=== PATIENT | male | born 1930 | race Caucasian/White ===

== ENCOUNTER → 2019-07-25 | Day surgery (SDC) | payer MEDICARE, OTHER ==
[2019-07-18 11:44] LABS: BASOPHILS # (AUTO) 0.1 (0.0-0.1); BASOPHILS % 0.4 % (0.0-1.0); EOSINOPHILS # (AUTO) 0.1 (0.0-0.4); EOSINOPHILS % 0.9 % (0.0-6.0); HEMATOCRIT 41.1 % (38.2-49.6); HEMOGLOBIN 13.4 g/dL (14.0-18.0); LYMPHOCYTES # (AUTO) 5.4 (1.0-3.2); LYMPHOCYTES % 40.3 % (18.0-39.1); MEAN CORPUSCULAR HEMOGLOBIN 26.7 pg (28-32); MEAN CORPUSCULAR HGB CONC 32.6 g/dL (31-35); MEAN CORPUSCULAR VOLUME 81.9 fL (81-99); MONOCYTES # (AUTO) 0.9 (0.2-0.8); MONOCYTES % 6.9 % (4.4-11.3); NEUTROPHILS # (AUTO) 6.8 (2.1-6.9); NEUTROPHILS % 51.1 % (38.7-80.0); PLATELET COUNT 235 x10e3/uL (140-360); RED BLOOD COUNT 5.02 x10e6/uL (4.3-5.7); RED CELL DISTRIBUTION WIDTH 13.4 % (11.7-14.4)
--- NOTE | 2019-07-18 12:41 | Diagnostic Imaging Report ---
Chest, PA and lateral. History: Preoperative evaluation, nephrolithiasis. Comparison: None available. Discussion: The heart is within normal limits of size. Patient status post median sternotomy. There is no focal consolidation. Small left pleural effusion is present. There is no pneumothorax. IMPRESSION: Small left pleural effusion Signed by: Shravan Gleason MD on 07/18/2019 12:38 PM
[~2019-07-25] MED LIST: AMLODIPINE BESY10 MG PO; ASPIR 8181 MG PO; B&O 60MG R/S 60 MG SUPP PR ONE; CEFTRIAXONE SOD 1 GM/NS 50 ML 50 ML IV ONE; DEXAMETHASONE SOD PHOS INJ 4 MG/ML VIAL ONE; FLOMAX0.4 MG PO; IOPAMIDOL 300MG/ML 50ML INFUS..BTL IV ONE; LIDOCAINE HCL 2% LOCAL INJ 5 ML SDV VIAL INJ ONE; ONDANSETRON HCL INJ 2MG/ML 2ML 2 MG/ML VIAL ONE; PRAVASTATIN SOD20 MG PO; PROPOFOL IV EMULSION 10 MG/ML 20 ML VIAL ONE; SEVOFLURANE INHAL SOLN 250 ML PEN BTL ONE; TYLENOL WITH C1 EACH PO
--- OUTSIDE RECORDS SUMMARY | 2019-07-25 14:10 | XMS REPORT | Summary of Care ---
Author Author MERCY LEE M.D. Unknown Address Unknown Phone Unavailable Care Team Providers Care [employer] Worker Name Role Phone MERCY LEE M.D. 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.18, H90.3) Status: Active Medications Name Dates Details No Reported Medications Active Allergies and Adverse Reactions Name Dates Details No Known Allergies (Allergy) Status: Active Procedures Procedure Dates Details Procedures not documented Immunization Name Dates Details Immunizations not documented Family History Name Dates Details No pertinent family history (V49.89, Z78.9) Comments: Other Status: Active Social History Name Dates Details - Status: Name Dates Details Never smoker Vital Signs Date Test Result Details [id number] Height 73 in Status: Weight 212.0625 lb Status: Body Mass Index Calculated 27.98 kg/m2 Status: Body Surface Area Calculated 2.21 m2 Status: Results Date Description Value Details Results not documented Plan of Care Name Dates Details Planned Observations Planned Goals not documented Interventions Provided Plan* 88 yo M with bilateral sensorineural hearing loss, cerumen impactions * - debrided bilateral EACs with instrumentation * - audio reviewed; medically cleared for hearing aids * - RTC 1 year with audio Instructions Name Dates Details Instructions not documented Encounters Appointment; MERCY LEE M.D. Encounter Diagnosis: Problem not documented On: 24-Oct-2018 10:30
--- OUTSIDE RECORDS SUMMARY | 2019-07-25 14:10 | XMS REPORT ---
[facility] Address Unknown Phone Unavailable Care Team Providers Care Avionics Safety Inspector Name Role Phone JOAQUÍN CORTÉS Unavailable Unavailable Payers Payer Name Policy Type Policy Number Effective Date Expiration Date Problems This patient has no known problems. Allergies, Adverse Reactions, Alerts Allergy Name Allergy Type Status Severity Reaction(s) Onset Date Inactive Date Treating Clinician Comments No Known Allergies DA Active U 2015-01-28 00:00:00 Medications This patient has no known medications. Results Test Description Test Time Test Comments Text Results Atomic Results Result Comments CHEST 2 VIEWS 2019-07-18 12:37:00 [place] [address] Patient Name: SAY SPEARS MR #: [id number] : 1930 Age/Sex: 89/M Req #: [id number] Adm Physician: Ordered by: JOAQUÍN CORTÉS MD Report #: [id number] Location: OR Room/Bed: Procedure: [id number] DX/CHEST 2 VIEWS Exam Date: 07/18/19 Exam Time: 1155 REPORT STATUS: Signed Chest, PA and lateral. History: Preoperative evaluation, nephrolithiasis. Comparison: None available. Discussion: The heart is within normal limits of size. Patient status post median sternotomy. There is no focal consolidation. Small left pleural effusion is present. There is no pneumothorax. IMPRESSION: Small left pleural effusion Signed by: Shravan Salazar MD on 07/18/2019 12:38 PM Dictated By: SHRAVAN SALAZAR MD 1238 Transcribed By: ASHLYN on 07/18/19 1238 COPY TO: JOAQUÍN CORTÉS MD - XR ABDOMEN AP 1 V 2019-06-09 16:18:00 FAX: Sumit Diaz [phone] [place]: St: ADM Name: SAY SPEARS [facility] : 1930 Age/S: 89/M [address] [facility] Unit #: [id number] Loc: V.50[address] [place] [address] Phys: Sumit Diaz MD Acct: [id number] Dis Date: Status: ADM IN PHONE #: [phone] Exam Date: 06/09/2019 1556 FAX #: [phone] Reason: STONE EXAMS: CPT CODE: [id number] XR ABDOMEN AP 1 V 71617 REASON FOR EXAM: STONE EXAM ORDER DATE: 06/09/2019 12:00 AM Attending Huma: Sumit Way MD PROCEDURE: - XR ABDOMEN AP 1 V COMPARISON:06/07/2019 FINDINGS: One view of the abdomen obtained at 3:36 PM. Large amount of stool seen throughout the colon suggestive of constipation. The small bowel is unremarkable. No evidence of organomegaly or evidence of ascites. No evidence of free air. IMPRESSION: Interval placement of a double-J left ureteral stent. No evidence of radiopaque stone at 1618 Reported and signed by: Gene Cherry M.D. CC: Sumit Diaz Technologist: FERNANDO WEBB, RT(R); GIOVANNY ODONNELL Trnscrd Date/Time/By: 06/09/2019 (6659) : By: JaysonL Orig Print D/T: S: 06/09/2019 (3813) PAGE 1 Signed Report BASIC METABOLIC PANEL 2019-06-09 08:03:00 SODIUM (test code=NA) 141 mmol/L 136-145 POTASSIUM (test code=K) 3.6 mmol/L 3.5-5.1 CHLORIDE (test code=CL) 110.0 mmol/L 98-107 CARBON DIOXIDE (test code=CO2) 23.0 mmol/L 21-32 ANION GAP (test code=GAP) 11.6 10-20 GLUCOSE (test code=GLU) 102 mg/dL 74-106 BLOOD UREA NITROGEN (test code=BUN) 24 mg/dL 7-18 GLOMERULAR FILTRATION RATE (test code=GFR) 44 mL/min >=60 Estimated GFR by using Modified MDRD formula.Chronic kidney disease is defined as either kidney damageor GFR <60 mL/min/1.73 m2 for >3 months. CREATININE (test code=CREAT) 1.50 mg/dL 0.7-1.3 BUN/CREATININE RATIO (test code=BUN/CREA) 16.0 10-20 CALCIUM (test code=CA) 9.0 mg/dL 8.5-10.1 BASIC METABOLIC [id number] 08:01:00* Test Item Value Reference Range Comments SODIUM (test code=NA) 141 mmol/L 136-145 POTASSIUM (test code=K) 3.6 mmol/L 3.5-5.1 CHLORIDE (test code=CL) 110.0 mmol/L 98-107 CARBON DIOXIDE (test code=CO2) mmol/L 21-32 ANION GAP (test code=GAP) 10-20 GLUCOSE (test code=GLU) mg/dL 74-106 BLOOD UREA NITROGEN (test code=BUN) mg/dL 7-18 GLOMERULAR FILTRATION RATE (test code=GFR) mL/min >=60 CREATININE (test code=CREAT) mg/dL 0.7-1.3 BUN/CREATININE RATIO (test code=BUN/CREA) 10-20 CALCIUM (test code=CA) mg/dL 8.5-10.1 CBC W/AUTO [id number] 07:42:00* Test Item Value Reference Range Comments WHITE BLOOD CELL (test code=WBC) K/mm3 4.5-12.5 RED BLOOD CELL (test code=RBC) mill/mm3 4.0-5.8 HEMOGLOBIN (test code=HGB) 13.0 gram/dL 13.0-17.5 HEMATOCRIT (test code=HCT) % 42.0-52.0 MEAN CELL VOLUME (test code=MCV) fL 80-98 MEAN CELL HGB (test code=MCH) picogram 27.0-33.0 MEAN CELL HGB CONCETRATION (test code=MCHC) gram/dL 33.0-36.0 RED CELL DISTRIBUTION WIDTH (test code=RDW) % 11.6-16.2 RED CELL DISTRIBUTION WIDTH SD (test code=RDW-SD) fL 37.0-51.0 PLATELET COUNT (test code=PLT) K/mm3 150-450 MEAN PLATELET VOLUME (test code=MPV) fL 6.7-11.0 NEUTROPHIL % (test code=NT%) % 39.0-69.0 IMMATURE GRANULOCYTE % (test code=IG%) % 0.0-5.0 LYMPHOCYTE % (test code=LY%) % 25.0-55.0 MONOCYTE % (test code=MO%) % 0.0-10.0 EOSINOPHIL % (test code=EO%) % 0.0-5.0 BASOPHIL % (test code=BA%) % 0.0-1.0 NEUTROPHIL # (test code=NT#) K/mm3 1.8-7.7 LYMPHOCYTE # (test code=LY#) K/mm3 1.0-5.0 MONOCYTE # (test code=MO#) K/mm3 0-0.8 EOSINOPHIL # (test code=EO#) K/mm3 0.0-0.5 BASOPHIL # (test code=BA#) K/mm3 0.0-0.2 CBC W/AUTO [id number] 07:42:00* Test Item Value Reference Range Comments WHITE BLOOD CELL (test code=WBC) 11.4 K/mm3 4.5-12.5 RED BLOOD CELL (test code=RBC) 4.81 mill/mm3 4.0-5.8 HEMOGLOBIN (test code=HGB) 13.0 gram/dL 13.0-17.5 HEMATOCRIT (test code=HCT) 39.6 % 42.0-52.0 MEAN CELL VOLUME (test code=MCV) 82.3 fL 80-98 MEAN CELL HGB (test code=MCH) 27.0 picogram 27.0-33.0 MEAN CELL HGB CONCETRATION (test code=MCHC) 32.8 gram/dL 33.0-36.0 RED CELL DISTRIBUTION WIDTH (test code=RDW) 13.9 % 11.6-16.2 RED CELL DISTRIBUTION WIDTH SD (test code=RDW-SD) 41.2 fL 37.0-51.0 PLATELET COUNT (test code=PLT) 194 K/mm3 150-450 MEAN PLATELET VOLUME (test code=MPV) 10.2 fL 6.7-11.0 NEUTROPHIL % (test code=NT%) 58.8 % 39.0-69.0 IMMATURE GRANULOCYTE % (test code=IG%) 0.3 % 0.0-5.0 LYMPHOCYTE % (test code=LY%) 30.6 % 25.0-55.0 MONOCYTE % (test code=MO%) 9.6 % 0.0-10.0 EOSINOPHIL % (test code=EO%) 0.4 % 0.0-5.0 BASOPHIL % (test code=BA%) 0.3 % 0.0-1.0 NUCLEATED RBC % (test code=NRBC%) 0.0 % 0-0 NEUTROPHIL # (test code=NT#) 6.72 K/mm3 1.8-7.7 IMMATURE GRANULOCYTE # (test code=IG#) 0.03 x10 3/uL 0-0.03 LYMPHOCYTE # (test code=LY#) 3.49 K/mm3 1.0-5.0 MONOCYTE # (test code=MO#) 1.09 K/mm3 0-0.8 EOSINOPHIL # (test code=EO#) 0.04 K/mm3 0.0-0.5 BASOPHIL # (test code=BA#) 0.03 K/mm3 0.0-0.2 NUCLEATED RBC # (test code=NRBC#) 0.00 K/mm3 0.0-0.1 [id number] 08:50:00* Test Item Value Reference Range Comments GLUBED (test code=GLUBED) 108 mg/dL 74-106 Performed by certified dividing machine operator at [facility] - XR ABDOMEN AP 1 [id number] 11:47:00 FAX: Joaquín Brown MD [phone] [place]: St: ADM FAX: Sumit Diaz [phone] Name: SAY SPEARS [facility] : 1930 Age/S: 89/M [address] [facility] Unit #: [id number] Loc: .[address] [place] [address] Phys: Joaquín Cortés MD Acct: [id number] Dis Date: Status: ADM IN PHONE #: [phone] Exam Date: 06/07/2019 1040 FAX #: [phone] Reason: LEFT OBSTRUCTING URETERAL STONE EXAMS: CPT CODE: [id number] XR ABDOMEN AP 1 V [id number] EXAM: Abdomen, 2 views; INFORMATION: Left ureteral stone; IMPRESSION: 1. The left ureteral stone, demonstr ated on yesterday's CT scan appears to be superimposed over the lateral aspect of the transverse process of L5. 2. The small nonobstruct ing calyceal stone in the left kidney is not clearly identified on this study. 3. Unremarkable bowel gas pattern; no evidence of obstruction or other acute abnormalities. Location [facility] at 1141 Reported and signed b y: Buzz Denise M.D. CC: Joaquín Cortés MD; Sumit Diaz Technologist: QUENTIN ALVAREZ(R) Trnscrd Date/Time/By: 06/07/2019 (1147) : By: Adin Orig Print D/T: S: 06/07/2019 (2045) PAGE 1 Signed Report CBC W/AUTO [id number] 07:17:00* Test Item Value Reference Range Comments WHITE BLOOD CELL (test code=WBC) 11.6 K/mm3 4.5-12.5 RED BLOOD CELL (test code=RBC) 4.64 mill/mm3 4.0-5.8 HEMOGLOBIN (test code=HGB) 12.4 gram/dL 13.0-17.5 HEMATOCRIT (test code=HCT) 40.0 % 42.0-52.0 MEAN CELL VOLUME (test code=MCV) 86.2 fL 80-98 MEAN CELL HGB (test code=MCH) 26.7 picogram 27.0-33.0 MEAN CELL HGB CONCETRATION (test code=MCHC) 31.0 gram/dL 33.0-36.0 RED CELL DISTRIBUTION WIDTH (test code=RDW) 14.1 % 11.6-16.2 RED CELL DISTRIBUTION WIDTH SD (test code=RDW-SD) 44.3 fL 37.0-51.0 PLATELET COUNT (test code=PLT) 161 K/mm3 150-450 RESULT VERIFIED BY REPEAT ANALYSIS MEAN PLATELET VOLUME (test code=MPV) 9.6 fL 6.7-11.0 NEUTROPHIL % (test code=NT%) 43.7 % 39.0-69.0 IMMATURE GRANULOCYTE % (test code=IG%) 0.3 % 0.0-5.0 LYMPHOCYTE % (test code=LY%) 44.4 % 25.0-55.0 MONOCYTE % (test code=MO%) 8.3 % 0.0-10.0 EOSINOPHIL % (test code=EO%) 2.8 % 0.0-5.0 BASOPHIL % (test code=BA%) 0.5 % 0.0-1.0 NUCLEATED RBC % (test code=NRBC%) 0.0 % 0-0 NEUTROPHIL # (test code=NT#) 5.09 K/mm3 1.8-7.7 IMMATURE GRANULOCYTE # (test code=IG#) 0.03 x10 3/uL 0-0.03 LYMPHOCYTE # (test code=LY#) 5.15 K/mm3 1.0-5.0 MONOCYTE # (test code=MO#) 0.96 K/mm3 0-0.8 EOSINOPHIL # (test code=EO#) 0.32 K/mm3 0.0-0.5 BASOPHIL # (test code=BA#) 0.06 K/mm3 0.0-0.2 NUCLEATED RBC # (test code=NRBC#) 0.00 K/mm3 0.0-0.1 BASIC METABOLIC [id number] 07:01:00* Test Item Value Reference Range Comments SODIUM (test code=NA) 142 mmol/L 136-145 POTASSIUM (test code=K) 3.5 mmol/L 3.5-5.1 CHLORIDE (test code=CL) 108.0 mmol/L 98-107 CARBON DIOXIDE (test code=CO2) 26.0 mmol/L 21-32 ANION GAP (test code=GAP) 11.5 10-20 GLUCOSE (test code=GLU) 103 mg/dL 74-106 BLOOD UREA NITROGEN (test code=BUN) 16 mg/dL 7-18 GLOMERULAR FILTRATION RATE (test code=GFR) 44 mL/min >=60 Estimated GFR by using Modified MDRD formula.Chronic kidney disease is defined as either kidney damageor GFR <60 mL/min/1.73 m2 for >3 months. CREATININE (test code=CREAT) 1.50 mg/dL 0.7-1.3 BUN/CREATININE RATIO (test code=BUN/CREA) 11.0 10-20 CALCIUM (test code=CA) 8.8 mg/dL 8.5-10.1 BASIC METABOLIC [id number] 06:59:00* Test Item Value Reference Range Comments SODIUM (test code=NA) 142 mmol/L 136-145 POTASSIUM (test code=K) 3.5 mmol/L 3.5-5.1 CHLORIDE (test code=CL) 108.0 mmol/L 98-107 CARBON DIOXIDE (test code=CO2) mmol/L 21-32 ANION GAP (test code=GAP) 10-20 GLUCOSE (test code=GLU) mg/dL 74-106 BLOOD UREA NITROGEN (test code=BUN) mg/dL 7-18 GLOMERULAR FILTRATION RATE (test code=GFR) mL/min >=60 CREATININE (test code=CREAT) mg/dL 0.7-1.3 BUN/CREATININE RATIO (test code=BUN/CREA) 10-20 CALCIUM (test code=CA) mg/dL 8.5-10.1 - CT ABD PELVIS W WO [id number] 10:16:00 Name: SAY SPEARS [facility] : 1930 Age/S: 89 / M [address] [facility] Unit #: [id number] Loc: [place] [address] Phys: Tianna Bhardwaj MD Acct: [id number] Dis Date: Status: REG ER PHONE #: [phone] Exam Date: 06/06/2019 0942 FAX #: [phone] Reason: L flank pain radiation to LLQ, h/o CA/renal sto EXAMS: CPT CODE: [id number] CT ABD PELVIS W WO CONT 93853 REASON FOR EXAM: L flank pain radiation to LLQ, h/o CA/renal stones EXAM ORDER DATE: 06/06/2019 8:35 AM Ordering M.D.: Tianna Bhardwaj MD PROCEDURE: - CT ABD PELVIS W WO CONT pre and postcontrast axial CT images were acquired through the abdomen/pelvis at 5 mm intervals. Sagittal and coronal reformatted images were generated. Automated exposure control was utilized for this reduction. Phases of contrast: venous and delayed COMPARISON: CT of the abdomen and pelvis August 01, 2018 FINDINGS: Visualized thorax: There is a noncalcified nodule in the right lower lobe (6/3) which was not included on the prior exam. This nodule measures up to 5 mm in size. There is a persistent left-sided pleural effusion. There is also rounded atelectasis in the left lung base. Cardiac chambers are normal in size. Three-vessel coronary ather osclerosis is present. There are right-sided pleural calcifications. Calci fied granulomas are present in the right lower lobe. Hepatob iliary system: There is a stone within the gallbladder lumen. No perichole cystic fat stranding or fluid to suggest acute cholecystitis Pancreas: Atrophic with mild fatty replacement Spleen: Normal Adrenal glands: Normal Genitourinary system: There are punctate stones in the left kidney. There is also a 4 mm stone in the mid left ureter (2/70). There is mild left-sided hydronephrosis as well as del ayed enhancement suggesting obstruction. The prostate gland is enlarged wi th calcification centrally. Urinary bladder is within normal limits. Bilateral simple renal cysts are unchanged from the previous exam. Gastrointestinal tract and appendix: Small hiatal hernia is present. Director Process ious amount of stool is seen in the colon. Postsurgical changes PAGE 1 Signed Report (CONTINUED) Name: SAY SPEARS [facility] : 1930 Age/ S: 89 / M [address] [facility] Unit #: [id number] Loc: [place] [address] Phys: Tianna Bhardwaj MD Acct: [id number] Dis Date: Status: REG ER PHONE #: [phone] Exam Date: 06/06/2019941 FAX #: [phone] Reason: L flank pain radiation to LLQ, h/o CA/renal sto EXAMS: CPT CODE: [id number] CT ABD PELVIS W WO CONT [id number] <Continued> with anastomotic sutures are present in the midline of the mid to lower abdomen. There is diverticular disease in the sigmoid and descending colon but no evidence of diverticulitis. Abdominal vascular structures: There is atherosclerotic disease in the aorta, iliac arteries, and femoral arteries. Peritoneum and retroperitoneum: No free fluid or free air. No omental or mesenteric masses. No abnormal lymph nodes. Musculoskeletal structures and abdominal wall: Degenerative changes are seen throughout the visualized spine. IMPRESSION: Obstructing 4 mm stone in the left ureter with associated hydroureter onephrosis.. Postsurgical changes of bowel resection with anastomosis in the mid abdomen. No abnormal masses at the anastomotic site. Co lonic diverticulosis without evidence of diverticulitis. Left-sided nonc alcified pulmonary nodule. Given the reported history of cancer, compari son with prior imaging of the chest is recommended to assess for stabili ty. Chronic left-sided pleural effusion with rounded atelectasis of the underlying lung. Right-sided pleural calcifications. These findi ngs may be sequela of prior infectious process or prior hemothorax. Location: [facility] at 1016 Reported and signed by: Isidro jerez MD CC: Tianna Bhardwaj MD Techno logist:Yeni Jaime RT(R)(CT) CTDI: 9.05 DLP: 1459.12Trnscb Date/Time : 06/06/2019 (1016) [email or web address] Orig Print D/T: S: 06/06/20 19 (2161) PAGE 2 Signed Report CBC W/MANUAL [id number] 09:49:00* Test Item Value Reference Range Comments WHITE BLOOD CELL (test code=WBC) 14.1 K/mm3 4.5-12.5 RED BLOOD CELL (test code=RBC) 5.32 mill/mm3 4.0-5.8 HEMOGLOBIN (test code=HGB) 14.2 gram/dL 13.0-17.5 HEMATOCRIT (test code=HCT) 43.8 % 42.0-52.0 MEAN CELL VOLUME (test code=MCV) 82.3 fL 80-98 MEAN CELL HGB (test code=MCH) 26.7 picogram 27.0-33.0 MEAN CELL HGB CONCETRATION (test code=MCHC) 32.4 gram/dL 33.0-36.0 RED CELL DISTRIBUTION WIDTH (test code=RDW) 13.7 % 11.6-16.2 RED CELL DISTRIBUTION WIDTH SD (test code=RDW-SD) 42.0 fL 37.0-51.0 PLATELET COUNT (test code=PLT) 223 K/mm3 150-450 MEAN PLATELET VOLUME (test code=MPV) 9.5 fL 6.7-11.0 NEUTROPHIL # (test code=NT#) 7.22 K/mm3 1.8-7.7 LYMPHOCYTE # (test code=LY#) 5.86 K/mm3 1.0-5.0 MONOCYTE # (test code=MO#) 0.88 K/mm3 0-0.8 EOSINOPHIL # (test code=EO#) 0.09 K/mm3 0.0-0.5 BASOPHIL # (test code=BA#) 0.04 K/mm3 0.0-0.2 MANUAL DIFF REQUIRED (test code=MDIFF) YES STAIN ACCEPTABILITY (test code=STN ACCEPTABLE) STAIN ACCEPTABLE TOTAL CELLS COUNTED (test code=TCC) 100 #CELLS SEGMENTED NEUTROPHILS (test code=SEG) 57 % 39-69 LYMPHOCYTE (test code=LYMPH) 38 % 25-55 MONOCYTE (test code=MON) 5 % 0-10 MORPHOLOGY COMMENT (test code=MOC) NORMAL PLATELET ESTIMATE (test code=PLTEST) ADEQUATE PLATELET MORPHOLOGY (test code=PLTMORPH) NORMAL URINALYSIS [id number] 09:24:00* Test Item Value Reference Range Comments UA COLOR (test code=COLU) DARK YELLOW YELLOW UA APPEARANCE (test code=APPU) HAZY CLEAR UA GLUCOSE DIPSTICK (test code=DGLUU) norm mg/dL NEGATIVE UA BILIRUBIN DIPSTICK (test code=BILU) NEGATIVE mg/dL NEGATIVE UA KETONE DIPSTICK (test code=KETU) 15 (1+) mg/dL NEGATIVE UA SPECIFIC GRAVITY (test code=SGU) 1.015 1.001-1.035 UA BLOOD DIPSTICK (test code=SHAKEEL) 50 (2+) Kobi/uL NEGATIVE UA PH DIPSTICK (test code=ANNE-MARIE) 6.0 5.0-8.0 UA PROTEIN DIPSTICK (test code=PROU) 15 (TRACE) mg/dL Neg-15 UA UROBILINIOGEN DIPSTICK (test code=URO) norm mg/dL 0.0-0.2 UA NITRITE DIPSTICK (test code=ALIZE) NEGATIVE NEGATIVE UA LEUKOCYTE ESTERASE DIPSTICK (test code=LEUU) neg uL NEGATIVE UA WBC (test code=WBCU) 0-5 per HPF 0-5 UA RBC (test code=RBCU) 25-50 per HPF 0-5 UA EPITHELIAL CELLS (test code=EPIU) Moderate (5-10/hpf) per HPF Few UA BACTERIA (test code=BACU) FEW per HPF NONE UA CALCIUM OXALATE CRYSTALS (test code=CAOXU) MODERATE per LPF NONE UA MUCUS (test code=MUCU) MODERATE per LPF NONE-FEW Urine Source? Clean CatchCOMPREHENSIVE METABOLIC [id number] 09:07:00* Test Item Value Reference Range Comments SODIUM (test code=NA) 143 mmol/L 135-148 POTASSIUM (test code=K) 3.5 mmol/L 3.5-5.1 CHLORIDE (test code=CL) 104 mmol/L 101-109 CARBON DIOXIDE (test code=CO2) 29.8 mmol/L 21-32 ANION GAP (test code=GAP) 13 mmol/L 10-20 GLUCOSE (test code=GLU) 134 mg/dL 74-106 BLOOD UREA NITROGEN (test code=BUN) 15 mg/dL 3-21 CREATININE (test code=CREAT) 1.47 mg/dL 0.55-1.3 BUN/CREATININE RATIO (test code=BUN/CREA) 10.2 10-20 TOTAL PROTEIN (test code=PROT) 7.6 g/dL 6.5-8.4 ALBUMIN (test code=ALB) 3.6 g/dL 3.4-4.8 GLOBULIN (test code=GLOB) 4.0 G/DL 1-10 ALBUMIN/GLOBULIN RATIO (test code=A/G) 0.9 RATIO 0.75-1.50 CALCIUM (test code=CA) 9.2 mg/dL 8.4-10.2 BILIRUBIN TOTAL (test code=BILT) 1.00 mg/dL 0.0-1.0 SGOT/AST (test code=AST) 27 U/L 6-32 SGPT/ALT (test code=ALT) 31 U/L 12-78 Note: Change in REFERENCE RANGE due to new reagent method. ALKALINE PHOSPHATASE TOTAL (test code=ALKP) 117 U/L 38-126 [id number] 09:07:00* Test Item Value Reference Range Comments LIPASE (test code=LIP) 56 U/L 128-270 CBC W/MANUAL [id number] 09:00:00* Test Item Value Reference Range Comments WHITE BLOOD CELL (test code=WBC) 14.1 K/mm3 4.5-12.5 RED BLOOD CELL (test code=RBC) 5.32 mill/mm3 4.0-5.8 HEMOGLOBIN (test code=HGB) 14.2 gram/dL 13.0-17.5 HEMATOCRIT (test code=HCT) 43.8 % 42.0-52.0 MEAN CELL VOLUME (test code=MCV) 82.3 fL 80-98 MEAN CELL HGB (test code=MCH) 26.7 picogram 27.0-33.0 MEAN CELL HGB CONCETRATION (test code=MCHC) 32.4 gram/dL 33.0-36.0 RED CELL DISTRIBUTION WIDTH (test code=RDW) 13.7 % 11.6-16.2 RED CELL DISTRIBUTION WIDTH SD (test code=RDW-SD) 42.0 fL 37.0-51.0 PLATELET COUNT (test code=PLT) 223 K/mm3 150-450 MEAN PLATELET VOLUME (test code=MPV) 9.5 fL 6.7-11.0 NEUTROPHIL # (test code=NT#) 7.22 K/mm3 1.8-7.7 LYMPHOCYTE # (test code=LY#) 5.86 K/mm3 1.0-5.0 MONOCYTE # (test code=MO#) 0.88 K/mm3 0-0.8 EOSINOPHIL # (test code=EO#) 0.09 K/mm3 0.0-0.5 BASOPHIL # (test code=BA#) 0.04 K/mm3 0.0-0.2 MANUAL DIFF REQUIRED (test code=MDIFF) YES STAIN ACCEPTABILITY (test code=STN ACCEPTABLE) TOTAL CELLS COUNTED (test code=TCC) #CELLS SEGMENTED NEUTROPHILS (test code=SEG) % 39-69 LYMPHOCYTE (test code=LYMPH) % 25-55 MONOCYTE (test code=MON) % 0-10 MORPHOLOGY COMMENT (test code=MOC) PLATELET ESTIMATE (test code=PLTEST) PLATELET MORPHOLOGY (test code=PLTMORPH) CBC W/MANUAL [id number] 08:56:00* Test Item Value Reference Range Comments WHITE BLOOD CELL (test code=WBC) 14.1 K/mm3 4.5-12.5 RED BLOOD CELL (test code=RBC) 5.32 mill/mm3 4.0-5.8 HEMOGLOBIN (test code=HGB) 14.2 gram/dL 13.0-17.5 HEMATOCRIT (test code=HCT) 43.8 % 42.0-52.0 MEAN CELL VOLUME (test code=MCV) 82.3 fL 80-98 MEAN CELL HGB (test code=MCH) 26.7 picogram 27.0-33.0 MEAN CELL HGB CONCETRATION (test code=MCHC) 32.4 gram/dL 33.0-36.0 RED CELL DISTRIBUTION WIDTH (test code=RDW) 13.7 % 11.6-16.2 RED CELL DISTRIBUTION WIDTH SD (test code=RDW-SD) 42.0 fL 37.0-51.0 PLATELET COUNT (test code=PLT) 223 K/mm3 150-450 MEAN PLATELET VOLUME (test code=MPV) 9.5 fL 6.7-11.0 NEUTROPHIL # (test code=NT#) 7.22 K/mm3 1.8-7.7 LYMPHOCYTE # (test code=LY#) 5.86 K/mm3 1.0-5.0 MONOCYTE # (test code=MO#) 0.88 K/mm3 0-0.8 EOSINOPHIL # (test code=EO#) 0.09 K/mm3 0.0-0.5 BASOPHIL # (test code=BA#) 0.04 K/mm3 0.0-0.2 MANUAL DIFF REQUIRED (test code=MDIFF) YES STAIN ACCEPTABILITY (test code=STN ACCEPTABLE) TOTAL CELLS COUNTED (test code=TCC) #CELLS SEGMENTED NEUTROPHILS (test code=SEG) % 39-69 LYMPHOCYTE (test code=LYMPH) % 25-55 MONOCYTE (test code=MON) % 0-10 EOSINOPHIL (test code=EOS) % 0.0-5.0 CABOT RINGS (test code=CAB) MORPHOLOGY COMMENT (test code=MOC) PLATELET ESTIMATE (test code=PLTEST) PLATELET MORPHOLOGY (test code=PLTMORPH) CBC W/MANUAL [id number] 08:56:00* Test Item Value Reference Range Comments WHITE BLOOD CELL (test code=WBC) 14.1 K/mm3 4.5-12.5 RED BLOOD CELL (test code=RBC) 5.32 mill/mm3 4.0-5.8 HEMOGLOBIN (test code=HGB) 14.2 gram/dL 13.0-17.5 HEMATOCRIT (test code=HCT) 43.8 % 42.0-52.0 MEAN CELL VOLUME (test code=MCV) 82.3 fL 80-98 MEAN CELL HGB (test code=MCH) 26.7 picogram 27.0-33.0 MEAN CELL HGB CONCETRATION (test code=MCHC) 32.4 gram/dL 33.0-36.0 RED CELL DISTRIBUTION WIDTH (test code=RDW) 13.7 % 11.6-16.2 RED CELL DISTRIBUTION WIDTH SD (test code=RDW-SD) 42.0 fL 37.0-51.0 PLATELET COUNT (test code=PLT) 223 K/mm3 150-450 MEAN PLATELET VOLUME (test code=MPV) 9.5 fL 6.7-11.0 NEUTROPHIL # (test code=NT#) 7.22 K/mm3 1.8-7.7 LYMPHOCYTE # (test code=LY#) 5.86 K/mm3 1.0-5.0 MONOCYTE # (test code=MO#) 0.88 K/mm3 0-0.8 EOSINOPHIL # (test code=EO#) 0.09 K/mm3 0.0-0.5 BASOPHIL # (test code=BA#) 0.04 K/mm3 0.0-0.2 MANUAL DIFF REQUIRED (test code=MDIFF) YES STAIN ACCEPTABILITY (test code=STN ACCEPTABLE) TOTAL CELLS COUNTED (test code=TCC) #CELLS SEGMENTED NEUTROPHILS (test code=SEG) % 39-69 LYMPHOCYTE (test code=LYMPH) % 25-55 MONOCYTE (test code=MON) % 0-10 EOSINOPHIL (test code=EOS) % 0.0-5.0 CABOT RINGS (test code=CAB) MORPHOLOGY COMMENT (test code=MOC) PLATELET ESTIMATE (test code=PLTEST) PLATELET MORPHOLOGY (test code=PLTMORPH) CBC W/MANUAL [id number] 08:56:00* Test Item Value Reference Range Comments WHITE BLOOD CELL (test code=WBC) 14.1 K/mm3 4.5-12.5 RED BLOOD CELL (test code=RBC) 5.32 mill/mm3 4.0-5.8 HEMOGLOBIN (test code=HGB) 14.2 gram/dL 13.0-17.5 HEMATOCRIT (test code=HCT) 43.8 % 42.0-52.0 MEAN CELL VOLUME (test code=MCV) 82.3 fL 80-98 MEAN CELL HGB (test code=MCH) 26.7 picogram 27.0-33.0 MEAN CELL HGB CONCETRATION (test code=MCHC) 32.4 gram/dL 33.0-36.0 RED CELL DISTRIBUTION WIDTH (test code=RDW) 13.7 % 11.6-16.2 RED CELL DISTRIBUTION WIDTH SD (test code=RDW-SD) 42.0 fL 37.0-51.0 PLATELET COUNT (test code=PLT) 223 K/mm3 150-450 MEAN PLATELET VOLUME (test code=MPV) 9.5 fL 6.7-11.0 NEUTROPHIL # (test code=NT#) 7.22 K/mm3 1.8-7.7 LYMPHOCYTE # (test code=LY#) 5.86 K/mm3 1.0-5.0 MONOCYTE # (test code=MO#) 0.88 K/mm3 0-0.8 EOSINOPHIL # (test code=EO#) 0.09 K/mm3 0.0-0.5 BASOPHIL # (test code=BA#) 0.04 K/mm3 0.0-0.2 MANUAL DIFF REQUIRED (test code=MDIFF) YES STAIN ACCEPTABILITY (test code=STN ACCEPTABLE) TOTAL CELLS COUNTED (test code=TCC) #CELLS SEGMENTED NEUTROPHILS (test code=SEG) % 39-69 LYMPHOCYTE (test code=LYMPH) % 25-55 MONOCYTE (test code=MON) % 0-10 EOSINOPHIL (test code=EOS) % 0.0-5.0 MORPHOLOGY COMMENT (test code=MOC) PLATELET ESTIMATE (test code=PLTEST) PLATELET MORPHOLOGY (test code=PLTMORPH) URINALYSIS [id number] 08:56:00* Test Item Value Reference Range Comments UA COLOR (test code=COLU) DARK YELLOW YELLOW UA APPEARANCE (test code=APPU) HAZY CLEAR UA GLUCOSE DIPSTICK (test code=DGLUU) norm mg/dL NEGATIVE UA BILIRUBIN DIPSTICK (test code=BILU) NEGATIVE mg/dL NEGATIVE UA KETONE DIPSTICK (test code=KETU) 15 (1+) mg/dL NEGATIVE UA SPECIFIC GRAVITY (test code=SGU) 1.015 1.001-1.035 UA BLOOD DIPSTICK (test code=SHAKEEL) 50 (2+) Kobi/uL NEGATIVE UA PH DIPSTICK (test code=ANNE-MARIE) 6.0 5.0-8.0 UA PROTEIN DIPSTICK (test code=PROU) 15 (TRACE) mg/dL Neg-15 UA UROBILINIOGEN DIPSTICK (test code=URO) norm mg/dL 0.0-0.2 UA NITRITE DIPSTICK (test code=ALIZE) NEGATIVE NEGATIVE UA LEUKOCYTE ESTERASE DIPSTICK (test code=LEUU) neg uL NEGATIVE UA WBC (test code=WBCU) per HPF 0-5 UA RBC (test code=RBCU) per HPF 0-5 UA EPITHELIAL CELLS (test code=EPIU) per HPF Few UA BACTERIA (test code=BACU) per HPF NONE Urine Source? Clean CatchCBC W/MANUAL [id number] 08:56:00* Test Item Value Reference Range Comments WHITE BLOOD CELL (test code=WBC) 14.1 K/mm3 4.5-12.5 RED BLOOD CELL (test code=RBC) 5.32 mill/mm3 4.0-5.8 HEMOGLOBIN (test code=HGB) 14.2 gram/dL 13.0-17.5 HEMATOCRIT (test code=HCT) 43.8 % 42.0-52.0 MEAN CELL VOLUME (test code=MCV) 82.3 fL 80-98 MEAN CELL HGB (test code=MCH) 26.7 picogram 27.0-33.0 MEAN CELL HGB CONCETRATION (test code=MCHC) 32.4 gram/dL 33.0-36.0 RED CELL DISTRIBUTION WIDTH (test code=RDW) 13.7 % 11.6-16.2 RED CELL DISTRIBUTION WIDTH SD (test code=RDW-SD) 42.0 fL 37.0-51.0 PLATELET COUNT (test code=PLT) 223 K/mm3 150-450 MEAN PLATELET VOLUME (test code=MPV) 9.5 fL 6.7-11.0 NEUTROPHIL # (test code=NT#) 7.22 K/mm3 1.8-7.7 LYMPHOCYTE # (test code=LY#) 5.86 K/mm3 1.0-5.0 MONOCYTE # (test code=MO#) 0.88 K/mm3 0-0.8 EOSINOPHIL # (test code=EO#) 0.09 K/mm3 0.0-0.5 BASOPHIL # (test code=BA#) 0.04 K/mm3 0.0-0.2 MANUAL DIFF REQUIRED (test code=MDIFF) YES STAIN ACCEPTABILITY (test code=STN ACCEPTABLE) TOTAL CELLS COUNTED (test code=TCC) #CELLS SEGMENTED NEUTROPHILS (test code=SEG) % 39-69 LYMPHOCYTE (test code=LYMPH) % 25-55 MONOCYTE (test code=MON) % 0-10 EOSINOPHIL (test code=EOS) % 0.0-5.0 CABOT RINGS (test code=CAB) MORPHOLOGY COMMENT (test code=MOC) PLATELET ESTIMATE (test code=PLTEST) PLATELET MORPHOLOGY (test code=PLTMORPH) SMALL INTESTINE,RESECT.[id number] 13:51:00 RUN DATE: 08/14/18 [facility] PAGE 1 RUN TIME: 1351 Specimen Inqui ry RUN USER: INTERFACE PATIENT: SAY SPEARS ACCT #: V [id number] [facility] #: [id number] AGE/SX: 88/M ROOM: [facility] RE07/31/18REG DR: Sumit Diaz MD : 32 BED: A DIS: STATUS: ADM IN TLOC: SPEC #: [id number] RECD: 08/07/18 STATUS: LEONIDES REQ #: [id number] JO ANN: 08/07/18 [facility] DR: Tim Tinoco MD ENTERED: 08/07/181604 SP TYPE: SMALL INTE OTHR DR: Wesley Billingsley i, MD, David MD [place], Nehemia MD Je roudi,Gutierrez [facility] REGISTRYORDERED: GROSS COPIES TO: Wesley Segundo MD [address] [place] [address] Tim Tinoco MD [address] [place] [address] Lopez Cortés MD [address] [place] [address] Gutierrez Jade MD [address] [place] [address] TUMOR REGISTRY MARKERS: MALIGNANCY PROCEDURES: GROSS (08/14/18) TISSUES: MESENTERY OF SMALL INTESTIN E, NOS CLINICAL HISTORY COLLECTION DATE: 08/07/18 MESENTERIC MASS CONTINUED ON NEXT PAGE RUN D ATE: 08/14/18 [employer] [place] GE 2 RUN TIME: 1351 Specimen Inquiry RUN USER: INTERFACE SPEC #: [id number] PATIENT: SAY SPEARS #[id number] (Continued) COMMENT Protocol fo r the Examination of Specimens from Patients With Neuroendocrine Tumors (Carcinoid Tumors) of the Small Intestine and Ampulla Specimen: Small intestine, site not specified Procedure: Segmental resection Specimen Size: 45 cm in l ength Tumor Size: Small bowel nodule 1.2 cm Mesenteric mass 2.7 cm Tumor Focality: Multifocal 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) Histologic Grade: G2 (intermediate grade) Mitotic Grade: 1/10 HPF Microscopic Tumor Extension: Tumor invades subserosal tissue without direct penetration of the serosa (visceral peritoneum) Margins: All margins are uninvolved by neuroendocrine tumor Proximal Margin: Uninvolved by neuroendo crine tumor Distal Margin: Uninvolved by nueroendocrine tumor Mesenteric Margin: Uninvolved by neuroendocrine tumor, 0.1 cm from ink ed mesenteric margin Lymph-Vascular Invasion: Indeterminate Perineural Invasion: Present Pathologic Staging Primary Tumor: pT3 Regional Lymph Node: pN1: Metasta sis in regional lymph node Number of Lymph Nodes Involved: 2 Number of Lymph Nodes Examined: 3 Distant [place] stasis: pM0 Anciallary Studies: Ki-67 labeling index - 3% to 20% Additional Pathologic Findings: Mesenteric calcified nodule (0.2 cm) The findings were discussed with Dr. Tinoco at 4 p.m. on 08/13/2018. FINAL DIAGNOSIS Mesenteric mass, resection: SMALL B OWEL NEUROENDOCRINE TUMOR, WELL-DIFFERENTIATED (CARCINOID TUMOR) SMA LL BOWEL TUMOR SIZE (1.2 CM) METASTATIC MESENTERIC MASS (2.7 CM) ASS OCIATED WITH MARKED FIBROSIS, NARROW MESENTERIC MARGIN (0.1 CM FORM INKED MARGIN) PERINEURAL INVASION, MULTI FOCAL LYMPH NOD E METASTASIS (2/3) SMALL BOWEL- FREE RESECTION MARGINS CONTINUED ON NEXT PAGE RUN DATE: 08/14/18 [place] [facility] PAGE 3 RUN TIME: 1351 Specimen Inquiry RUN USER: IN LILLIAN SP EC #: [id number] PATIENT: SAY SPEARS #[id number] ( Continued) FINAL DIAGNOSIS (Continued) FA/k ae D 42971, 72599, 11505, 20874 MACROSCOPIC The specimen consis ts of a segment of small bowel which has a firm area in the attached mesenteri c adipose tissue. The bowel segment measures 45 cm in length. It is open and allowed to fix before further examination of the specimen. After the specimen is allowed to fix it is reexamined. There is a 1.2 cm solitario white nodule involvi ng small bowel wall associated with underlying firm mesenteric mass. The lesio n is loccated in the middle of the specimen and both margins of the small wilfrid l are free of tumor. Some ink is placed along the mesenteric margin in the ar ea of the palpable mesenteric mass. Cut section reveals a firm pale yellow ma ss in the mesenteric adipose tissue. The mass measures 2.7 X 2.3 X 1.8 cm. I t extends close to the inked mesenteric margin. Samples of the mesenteric mas s are submitted for microscopic evaluation in cassettes (1A-1D) and a sample o f the underlying small bowel is submitted for microscopic evaluation in casset te (1E-1I). GROSS PERFORMED AT [facility] [address] [place] [address] [phone] M ICROSCOPIC Sections show carcinoid tumor characterized by solid, insular and glandular nodules of monotonous small round cells with moderate finely granula r cytoplasm, small nucleoli and salt and pepper chromatin. No significant c ytologic atypia or nonischemic tumor necrosis is identified. There are rare m itotic figures. The tumor involves full thickness of the bowel wall with no se meagan involvement. Sections show extensive mesenteric involvement, marked mese nteric fibrosis, multifocal perineural invasion and suspicious foci of lymphov ascular invasion. Two lymph nodes are mostly replaced by the neuroendocrine tu mor and had only a rim of residual lymphocytes. Additionally, there is a calci fied mesenteric nodule (0.2 cm). Immunohistochemical studies performed at [facility] and interpreted at [facility] with appropriate controls (bloc k 1A). The tumor cells are diffusely positive for synaptophysin and chromogra saqib. Ki-67 immunostaining highlights mitotic figures. Ki-67 labeling index is 10%. CONTINUED ON NEXT PAGE -- RUN DATE: 08/14/18 [place] - Lab PAGE 4 RUN TIME: 1351 Specimen Inquiry RUN USER: INTERFACE SPEC #: [id number] PATIENT: SAY SPEARS #[id number] (Continued) MICROSCOPIC (Continued) MICROSCOPIC PERFORMED AT [facility] All of the stains, including any controls performed, stain a ppropriately. [facility] [address] [place] [address] 77 [phone])[phone] PERFORMING SITE Diagnosis performed at: [facility], [address] [place] [address] Signed SIGNATURE ON FILE Mohan Estrada MD 08/14/18 1351 END OF REPORT GASTRIC,[id number] 16:51:00 RUN DATE: 08/08/18 [facility] PAGE 1 RUN TIME: 1651 Specimen Inqui ry RUN USER: INTERFACE PATIENT: SAY SPEARS ACCT #: V [id number] LOC: [facility] U #: [id number] AGE/SX: 88/M ROOM: [id number] RE07/31/18REG DR: Sumit Diaz MD : 32 BED: A DIS: STATUS: ADM IN TLOC: SPEC #: [id number] RECD: 08/07/18 STATUS: LEONIDES REQ #: [id number] JO ANN: 08/05/18 [facility] DR: Wesley Segundo MD ENTERED: 08/07/18 SP TYPE: GASTRIC BX OTHR DR: Tim Tinoco MD, Nehemia MD Jeroudi, Mohamed O MDORDERED: GROSS COPIES TO: Wesley Segundo MD [address] [place] [address] Tim Tinoco MD [address] [place] [address] Lopez Cortés MD [address] [place] [address] Gutierrez Jade MD [address] [place], [place] [id number] PROCEDURES: GROSS (08/08/18-115) TISSUES: 1. ANTRUM - BX 2. ESOPHAGUS, NOS - LOWER BX 3. ESOPHAGUS, NOS - UPPER BX CLINICAL HISTORY COLLECTION DATE: DYSPHAGIA FINAL DIAGNOSIS Stomach, antrum, biopsy: MILD CHRONIC GASTRITIS NO DIAGNOSTIC HELICOBACTER IDENTIFIED CONTINUED ON NEXT PAGE RUN DATE : 08/08/18 [place] - Lab PAGE 2 RUN TIME: 1651 Specimen Inquiry RUN USER: INTERFACE SPEC #: [id number] PATIENT: SAY SPEARS #V [id number] (Continued) FINAL DIAGNOSIS (Continue d) Lower esophagus, biopsy: GASTROESOPHAGEAL MUCOSA WITH ULCERATION, A CUTE AND CHRONIC INFLAMMATION NEGATIVE FOR INTESTINAL METAPLASIA, DYSPLAS IA OR MALIGNANCY GMS STAIN NEGATIVE FOR FUNGAL ELEMENTS Upper esoph valorie, biopsy: GASTRIC MUCOSA WITH MILD CHRONIC INFLAMMATION NO SQU AMOUS MUCOSA PRESENT NEGATIVE FOR INTESTINAL METAPLASIA, DYSPLASIA OR MAL IGNANCY FA/sm D 3) 67343, 2) 91950 MACROSCOPIC The first specimen is received in formalin, labeled with the patient's name, and identified as "antrum bx". It consists of two solitario biopsy fragments measu ring 0.35 cm each. An H E and a Giemsa stain will be prepared. The second specimen is received in formalin, labeled with the patient's name, and identi fied as "esophagus bx". It consists of solitario biopsy material measuring 0.3 cm. The third specimen is received in formalin, labeled with the patient's n lisa, and identified as "upper esophagus bx". It consists of a solitario biopsy frag ment measuring 0.3 cm. GROSS PERFORMED AT [facility] [address] [place] [address] [phone] MICROSCOPIC MICROSCOPIC PERFORMED AT [facility] All of the stains, including any controls performed, stain appropriately. [facility] [address] [place] [address] [phone] CONTINUED ON NEXT PAGE RUN DATE : 08/08/18 [facility] [place] PAGE 3 RUN TIME: 165 Specimen Inquiry RUN USER: INTERFACE SPEC #: [id number] PATIENT: SAY SPEARS #V [id number] (Continued) PERFORMING SITE Diagnosis perfo rmed at: [facility], [address] [facility], [place] [address] Signed SIGNATURE ON Mohan Hemphill MD 08/08/18 1651 END OF REPORT
[2019-07-25 15:05] VITALS: BP 145/83
--- NOTE | 2019-09-10 01:10 | Operative Report ---
DATE OF PROCEDURE: 07/25/2019 SURGEON: Jj Cortés MD PREOPERATIVE DIAGNOSES: 1. Left nephrolithiasis. 2. Left indwelling ureteral stent. POSTOPERATIVE DIAGNOSES: 1. Left nephrolithiasis. 2. Left indwelling ureteral stent. OPERATION PERFORMED: Note, these were all staged procedures as part of multi-staged and multi-step process in managing the patient's urolithiasis. 1. Cystourethroscopy with complicated removal of left indwelling ureteral stent (separate procedure performed with separate scope for the diagnosis of the stent). 2. Left ureteroscopy with stone manipulation (separate procedure performed for the nephrolithiasis). 3. Radiological services with supervision and interpretation of ureteroscopy. 4. Interpretation of retrograde ureteropyelography. ANESTHESIA: General. COMPLICATIONS: None. CLINICAL SUMMARY: Wes Whalen is an 89-year-old man with the above preoperative diagnosis is a stent in place. He is brought for the above procedures. He is aware of the risks of bleeding, infection, injury to adjacent structures, need for additional procedures and elected to proceed. OPERATIVE PROCEDURE IN DETAIL: Informed consent was verified, Wes Whalen was properly identified, taken to the operating room, placed on the cystoscopy table in supine position. Anesthesia was uneventfully begun. The patient was then carefully gently repositioned in the dorsal lithotomy position with all pressure points well padded. His genitalia were prepared and draped in usual sterile fashion. The cystoscope sheath with the visual obturator in place was atraumatically inserted into the patient's urethra was guided unremarkable distal urethra through normal sphincteric region through the prostate bed, which was significant for visually obstructing BPH with kissing lateral lobes and median lobe obstructing as well into the patient's bladder which exhibited grade 3 trabeculations, but no tumors, there were no stones except for the infestation on the stent emerging from the left ureteral orifice. A guidewire was then placed alongside the stent and guided to the level of the patient's kidney, the stent was then grasped, completely removed and discarded. Semi-rigid ureteroscope was then inserted alongside the guidewire into the left ureter. The distal ureter exhibited a few pieces of sand that should be passable, but there were no obvious mucosal lesions. Flexible ureteroscope was then brought up over the guidewire and guided into the patient's kidney. Mateo's plaques were identified. There were no suspicious lesions. There were no tumors. We identified the stone. The stone was grasped with Nitinol tipless basket and extracted atraumatically. Fine sand was present within the kidney was irrigated loose prior to removal of the stone. As we exited, we examined the ureter thoroughly and it could not exhibit any stones nor strictures, no tumors. Interpretation of retrograde ureteropyelography contrast was instilled in retrograde fashion on left hand side, there was some mild fullness in the renal pelvis. There were no obvious mucosal lesions. Unobstructed drainage was observed fluoroscopically. The patient's bladder was drained, cystoscope was withdrawn. Digital rectal examination revealed a larger than 40 g prostate that is smooth, nonfluctuant without any nodules. The patient was then uneventfully reversed from anesthesia and taken to recovery in stable condition. There were no complications to the procedure. He tolerated the procedure well. Explicit postop instructions were given. We will plan to follow the patient up in the office on a long-term basis. On followup appointments, we will perform uroflowmetry and bladder ultrasonography to assess the patient's prostate. Jj Cortés MD [place]/AIRAM /[id number]
== END | disposition home or self-care (01) ==
LOC: OR 10:13
PROVIDERS: ATTEND Urology
DX: N20.0 Calculus of kidney (principal); K44.9 Diaphragmatic hernia without obstruction or gangrene; I10 Essential (primary) hypertension; F41.9 Anxiety disorder, unspecified; E11.9 Type 2 diabetes mellitus without complications; I25.10 Atherosclerotic heart disease of native coronary artery without angina pectoris; Z96.0 Presence of urogenital implants; Z87.442 Personal history of urinary calculi; Z01.810 Encounter for preprocedural cardiovascular examination; Z01.812 Encounter for preprocedural laboratory examination; Z01.811 Encounter for preprocedural respiratory examination; Z87.891 Personal history of nicotine dependence; Z85.038 Personal history of other malignant neoplasm of large intestine; Z79.82 Long term (current) use of aspirin
CPT/HCPCS: 36415; 52352; 71046; 74420; 85025; 88300; 93005; J0696; J1100; J2001; J2405; J2704; Q9967; C1769

== ENCOUNTER → 2021-06-10 | Day surgery (SDC) | payer MEDICARE, OTHER ==
[2021-06-07 14:07] LABS: BASOPHILS # (AUTO) 0.1 (0.0-0.1); BASOPHILS % 0.5 % (0.0-1.0); EOSINOPHILS # (AUTO) 0.2 (0.0-0.4); EOSINOPHILS % 1.1 % (0.0-6.0); HEMATOCRIT 40.7 % (38.2-49.6); HEMOGLOBIN 12.3 g/dL (14.0-18.0); LYMPHOCYTES # (AUTO) 7.9 (1.0-3.2); LYMPHOCYTES % 47.9 % (18.0-39.1); MEAN CORPUSCULAR HEMOGLOBIN 26.4 pg (28-32); MEAN CORPUSCULAR HGB CONC 30.2 g/dL (31-35); MEAN CORPUSCULAR VOLUME 87.3 fL (81-99); MONOCYTES # (AUTO) 0.7 (0.2-0.8); MONOCYTES % 4.5 % (4.4-11.3); NEUTROPHILS # (AUTO) 7.4 (2.1-6.9); NEUTROPHILS % 45.1 % (38.7-80.0); PLATELET COUNT 336 x10e3/uL (140-360); RED BLOOD COUNT 4.66 x10e6/uL (4.3-5.7); RED CELL DISTRIBUTION WIDTH 13.8 % (11.7-14.4)
[2021-06-07 14:26] LABS: ANION GAP 12.4 mmol/L (8-16); CALCIUM 9.8 mg/dL (8.4-10.2); CREATININE, SERUM 1.4 mg/dL (0.72-1.25); POTASSIUM 4.4 mmol/L (3.5-5.1)
[~2021-06-10] MED LIST changes: -B&O 60MG R/S 60 MG SUPP PR ONE; +BELLADONNA/OPIUM 30 MG SUPP RC ONE; +CEFTRIAXONE 1 GM VIAL ONE; -CEFTRIAXONE SOD 1 GM/NS 50 ML 50 ML IV ONE; -DEXAMETHASONE SOD PHOS INJ 4 MG/ML VIAL ONE; +FENTANYL CITRATE/PF 100MCG/2 ML INJ ONE; +FINASTERIDE5 MG PO; +FUROSEMIDE40 MG PO; +KETOROLAC TROMETHAMINE 30 MG/ML VIAL ONE; +MECLIZINE HCL12.5 MG PO; +MIDAZOLAM HCL 2 MG/2 ML VIAL ONE; +PLAVIX75 MG PO; +POVIDONE IODINE 0.05% 0.05 % ML PO ONE; +PRESERVISION T1 EACH PO; +SODIUM CHLORIDE 0.9% 50ML 50 ML ONE
[2021-06-10 15:15] VITALS: BP 130/80
== END | disposition home or self-care (01) ==
LOC: OR 11:30
PROVIDERS: ATTEND Urology
DX: Z46.6 Encounter for fitting and adjustment of urinary device (principal); N20.1 Calculus of ureter; N39.0 Urinary tract infection, site not specified; N13.30 Unspecified hydronephrosis; N40.1 Benign prostatic hyperplasia with lower urinary tract symptoms; R39.14 Feeling of incomplete bladder emptying; R35.1 Nocturia; N32.89 Other specified disorders of bladder; N28.89 Other specified disorders of kidney and ureter; R80.9 Proteinuria, unspecified; N50.0 Atrophy of testis; Q55.22 Retractile testis; E11.22 Type 2 diabetes mellitus with diabetic chronic kidney disease; I12.9 Hypertensive chronic kidney disease with stage 1 through stage 4 chronic kidney disease, or unspecified chronic kidney disease; N18.9 Chronic kidney disease, unspecified; I25.810 Atherosclerosis of coronary artery bypass graft(s) without angina pectoris; I25.2 Old myocardial infarction; J98.11 Atelectasis; K21.9 Gastro-esophageal reflux disease without esophagitis; Z01.810 Encounter for preprocedural cardiovascular examination; Z01.812 Encounter for preprocedural laboratory examination; Z01.818 Encounter for other preprocedural examination; Z20.822 Contact with and (suspected) exposure to COVID-19; Z79.02 Long term (current) use of antithrombotics/antiplatelets; Z79.82 Long term (current) use of aspirin; Z95.1 Presence of aortocoronary bypass graft; Z95.0 Presence of cardiac pacemaker; Z84.1 Family history of disorders of kidney and ureter
CPT/HCPCS: 36415; 52352; 71046; 74018; 74420; 80048; 83970; 84550; 85025; 87086; 87186; 88300; 93005; J0696; J1885; J2001; J2250; J2405; J2704; J3010; Q9967; U0002

== ENCOUNTER → 2021-12-12 | Outpatient (CLI) | payer MEDICARE, OTHER ==
[~2021-12-12] MED LIST changes: -BELLADONNA/OPIUM 30 MG SUPP RC ONE; -CEFTRIAXONE 1 GM VIAL ONE; -FENTANYL CITRATE/PF 100MCG/2 ML INJ ONE; -IOPAMIDOL 300MG/ML 50ML INFUS..BTL IV ONE; -KETOROLAC TROMETHAMINE 30 MG/ML VIAL ONE; -LIDOCAINE HCL 2% LOCAL INJ 5 ML SDV VIAL INJ ONE; -MIDAZOLAM HCL 2 MG/2 ML VIAL ONE; -ONDANSETRON HCL INJ 2MG/ML 2ML 2 MG/ML VIAL ONE; -POVIDONE IODINE 0.05% 0.05 % ML PO ONE; -PROPOFOL IV EMULSION 10 MG/ML 20 ML VIAL ONE; -SEVOFLURANE INHAL SOLN 250 ML PEN BTL ONE; -SODIUM CHLORIDE 0.9% 50ML 50 ML ONE
== END ==
LOC: RAD 08:51
PROVIDERS: ATTEND Urology
DX: N20.0 Calculus of kidney (principal)
CPT/HCPCS: 74018